=== PATIENT | male | born 1950 | race Caucasian/White ===

== ENCOUNTER 2017-11-19 17:20 | Observation (INO) ==
[2017-11-19 17:51] LABS: Basophils # 0.1 K/mcL (0.0-0.2); Basophils % 0.4 %; Hematocrit 45.2 % (37.5-50.1); Lymphocytes # 2.1 K/mcL (0.6-4.6); Mean Corpuscular HGB Conc 33.2 g/dL (31.6-35.5); Mean Corpuscular Hemoglobin 32.2 pg (28.0-33.3); Mean Platelet Volume 10.2 fL (9.4-12.4); Monocytes # 1.2 K/mcL (0.0-1.3); Monocytes % 5.6 %; Neutrophils # 17.5 K/mcL (1.6-8.9); Platelet Count 243 K/mcL (140-400); Red Blood Count 4.66 M/mcL (4.19-5.50); Red Cell Distribution Width 12.8 % (11.5-14.5)
[2017-11-19 18:01] LABS: Calcium 8.8 mg/dL (8.6-10.3); Carbon Dioxide 26 mEq/L (23-29); Chloride 99 mEq/L (98-107); Potassium 3.7 mEq/L (3.5-5.1); Sodium 131 mEq/L (136-145)
[2017-11-19 18:06] LABS: BUN/Creatinine Ratio 11 (6-26); Blood Urea Nitrogen 11 mg/dL (8-23); Glucose 383 mg/dL (70-105); Osmolality,Calculated 287 (280-300); eGFR For African Americans > 60 (> 60); eGFR For Non-African Americans > 60 (> 60)
[2017-11-19 18:20] LABS: Thyroid Stimulating Hormone 1.325 mcIU/mL (0.340-5.600)
[2017-11-19] MEDS ORDERED: Levofloxacin 750 MG/150 ML 750 MG/150 ML BAG IVPB ONE (19:27)
[2017-11-19] MEDS ORDERED: *HR* Enoxaparin 80 MG/0.8 ML SYRINGE SQ STA (19:27)
--- NOTE | 2017-11-19 19:43 | Emergency Department Note ---
Disposition Clinical Impression: Paroxysmal atrial fibrillation with rapid ventricular response Left lower lobe pneumonia Qualifiers: Pneumonia type: due to unspecified organism Qualified Code(s): J18.1 - Lobar pneumonia, unspecified organism Disposition: Admitted As Inpatient Condition: Good General Adult HPI - General Chief complaint: ED Arrhythmia/Palpitations Stated complaint: Fever; "was told by obleness to check into ER" Time Seen by Provider: 11/19/17 17:36 Source: patient Limitations: no limitations Nursing Notes Reviewed: Yes Vital Signs Reviewed: Yes - History of Present Illness HPI Narrative: 67-year-old male with a past medical history of diabetes. He reports that yesterday he had a sudden onset of fatigue and feeling generally unwell. Over the last few days he has had a cough with shortness of breath that acutely worsened at that time. This morning he went to the emergency department but left AMA because he had to give somebody a ride. He presents here with complaint of a fever, cough, generalized fatigue. He denies a prior history of any cardiac disease. He has no history of atrial fibrillation. He does not have any nausea or vomiting or abdominal pain. Radiation: non-radiation Pain Severity: moderate Pain Scale: 6 Consistency: constant Improves with: nothing Worsens with: nothing Associated symptoms: Reports: denies other symptoms Treatments Prior to Arrival: none - Related Data Allergies Allergy/AdvReac Type Severity Reaction Status Date / Time codeine AdvReac Palpitation Verified 11/19/17 17:29 s All systems ED: reviewed and negative except as stated. Constitutional: Denies: fever ENT ED: Denies: throat pain Cardiovascular: Reports: chest pain, palpitations, dyspnea on exertion Respiratory: Reports: cough Gastrointestinal: Denies: abdominal pain, nausea, vomiting Integumentary: Denies: rash Endocrine: Reports: fatigue Past Medical History - Past Medical History Medical history: Reports: diabetes Psychiatric history: Reports: no psych history - Social History Smoking Status: Current some day smoker Smokeless Tobacco Status: No Alcohol use: Reports: occasionally Drug use: Reports: none Physical Exam - General Limitations: no limitations General appearance: alert, in no apparent distress - Head Head exam: atraumatic - Eye Eye exam: Present: normal appearance, PERRL - ENT ENT exam: normal exam, normal oropharynx - Neck Neck exam: Present: normal inspection - Chest Chest inspection: Present: normal inspection - Respiratory Respiratory exam: Present: other (coarse lung sounds present.). Absent: respiratory distress - Cardiovascular Cardiovascular exam: Present: tachycardia, irregular rhythm - Abdominal Exam Abdominal exam: Present: soft, Non-Tender - Extremities Exam Extremities exam: Present: normal inspection - Neurological Exam Neurological exam: Present: alert, oriented X3 - Psychiatric Psychiatric exam: Present: normal affect, normal mood - Skin Skin exam: Present: warm, dry Course Course Narrative: On presentation the emergency department he was in atrial fibrillation with rapid ventricular rate. While I was in the room he converted to normal sinus rhythm and was confirmed by EKG. He was found to have a pneumonia on CT scan. In addition he has leukocytosis. I did go ahead and obtain blood cultures and started the Levaquin. I also gave 1 mg/kg of Lovenox for anticoagulation. He has remained in normal sinus rhythm since he converted. Vital Signs Temperature 98.7 F 11/19/17 17:24 Pulse Rate 138 11/19/17 17:24 Respiratory Rate 16 11/19/17 17:24 Blood Pressure 137/83 11/19/17 17:24 O2 Sat by Pulse Oximetry 94 11/19/17 17:24 Temperature 98.7 F 11/19/17 17:24 Pulse Rate 94 11/19/17 19:29 Respiratory Rate 16 11/19/17 19:29 Blood Pressure 148/78 11/19/17 19:29 O2 Sat by Pulse Oximetry 95 11/19/17 19:29 Oxygen Delivery Oxygen Delivery Room Air Medical Decision Making - Medical Records Medical records reviewed: Yes I reviewed the patient's medical records. - Lab Data Lab results reviewed: Yes I reviewed the patient's lab results. Result diagrams: 11/19/17 17:41 11/19/17 17:41 Lab Results 11/19/17 11/19/17 11/19/17 Range/Units 17:41 17:41 17:41 WBC 21.0 H (4.3-11.1) K/mcL RBC 4.66 (4.19-5.50) M/mcL Hgb 15.0 (12.9-16.9) g/dL Hct 45.2 (37.5-50.1) % MCV 97.0 (83.0-100.0) fL MCH 32.2 (28.0-33.3) pg MCHC 33.2 (31.6-35.5) g/dL RDW 12.8 (11.5-14.5) % Plt Count 243 (140-400) K/mcL MPV 10.2 (9.4-12.4) fL Immature Gran % 1.0 (0-4) % Seg Neutrophils % 83.0 % Lymphocytes % 10.0 % Monocytes % 5.6 % Eosinophils % 0.0 % Basophils % 0.4 % Neutrophils # 17.5 H (1.6-8.9) K/mcL Lymphocytes # 2.1 (0.6-4.6) K/mcL Monocytes # 1.2 (0.0-1.3) K/mcL Eosinophils # 0.0 (0.0-0.6) K/mcL Basophils # 0.1 (0.0-0.2) K/mcL Sodium 131 L (136-145) mEq/L Potassium 3.7 (3.5-5.1) mEq/L Chloride 99 (98-107) mEq/L Carbon Dioxide 26 (23-29) mEq/L BUN 11 (8-23) mg/dL Creatinine 1.03 (0.70-1.30) mg/dL Est GFR ( Amer) > 60 (> 60) Est GFR (Non-Af Amer) > 60 (> 60) BUN/Creatinine Ratio 11 (6-26) Glucose 383 H (70-105) mg/dL Calculated Osmolality 287 (280-300) Calcium 8.8 (8.6-10.3) mg/dL Troponin I < 0.03 (< 0.04) ng/mL TSH 1.325 (0.340-5.600) mcIU/mL - Radiology Data Radiology results reviewed: Yes I reviewed the patient's radiology results. - EKG Data EKG #1 EKG attestation: Yes I reviewed and interpreted this EKG. Rate: tachycardia Rhythm: A.Fib Interpretation: other (Afib RVR rate 134) EKG #2 EKG attestation: Yes I reviewed and interpreted this EKG. EKG shows normal: sinus rhythm Rate: normal Rhythm: NSR [place]/QRS: normal Interpretation: normal EKG Attestation Statement - Attestation Attestation: I examined this patient and my medical decision-making was reviewed with the Resident Physician, Dr. Pollard. I agree with the documented findings, disposition and treatment plan as described except to the extent set forth below. Patient is a 67-year-old white male who presents to the emergency department after leaving AMA from an outlying facility for 2-3 day history of gradually worsening fatigue fever or chills URI symptoms and cough. Patient states this acutely became worse over the last 24 hours and he is just feeling very fatigued. Patient arrives with an EKG that was performed in triage showing new onset atrial fibrillation with RVR and was brought back directly to a room. Patient with stable blood pressure throughout this time and no significant symptoms of chest pain palpitations no diaphoresis no shortness breath at rest no abdominal pain or back pain. Patient with no significant cardiac history. The patient's physical exam findings as documented patient was cardiac on arrival with a stable blood pressure. Was placed on child monitor and continuous pulse ox IV saline while was established and labs were drawn and sent chest x-ray and EKG were obtained. Chest x-ray was unremarkable for any infiltrates or pulmonary edema. Patient's labs show significant white count with left shift but the remainder of his lab work was unremarkable. We were still concerned clinically about possible pneumonia versus PE so patient was sent for CT of the chest which did confirm pneumonia. IV antibiotics were initiated for community-acquired pneumonia and patient was given Lovenox for paroxysmal A. fib. During reevaluation it was noted that patient had a normal sinus rhythm with heart rate in the 90s, EKG was repeated and he is in normal sinus rhythm at this time, vital signs are stable. Patient will be admitted to the hospitalist service for further evaluation and management.
[2017-11-19] MEDS ORDERED: Insulin LISPRO 300 UNITS/3 ML VIAL SQ SCH (22:15)
--- NOTE | 2017-11-19 22:50 | Internal Med History&Physical ---
<Jose Luis Rob - Last Filed: 11/20/17 00:17> Date of Encounter: 11/20/17 Time of Encounter: 22:15 Assessment and Plan (1) Left lower lobe pneumonia Current visit: Yes Status: Acute Patient complains of cough and SOB. WBC elevated to 21.0, will monitor CTA chest showed patchy consolidation of the left lower lobe suspicious for pneumonia Blood culture sent Started on levofloxacin in the ER, will continue Qualifiers: Pneumonia type: due to unspecified organism Qualified Code(s): J18.1 - Lobar pneumonia, unspecified organism (2) Paroxysmal atrial fibrillation with rapid ventricular response Current visit: Yes Status: Acute Converted to sinus rhythm in the ER, still mildly tachycardic Administering maintenance fluids Lovenox for anticoagulation Cardiac monitoring during this admission TSH normal Trending troponins, negative thus far Cause most likely PNA Echo in morning Cardiology consult in morning to consider outpatient follow up of stress test Patient likely to be candidate for cardioversion, should in return to afib (3) Diabetes mellitus, type II Current visit: Yes Status: Acute Normally takes metformin at home Glucose elevated to 383 on admission Started low dose SSI Qualifiers: Diabetes mellitus complication status: without complication Diabetes mellitus prison insulin use: without retail mortgage banker use Qualified Code(s): E11.9 - Type 2 diabetes mellitus without complications (4) DVT prophylaxis Current visit: Yes Status: Acute [facility] Internal Medicine - H&P: HPI Chief complaint: Weakness, chills, cough Admitted From: Home Plans for Post Hospital Care: Home History of present illness: Mr. Shah is a 67 year old male presenting with SOB, chills, and weakness that started yesterday. His initial symptom was nonproductive cough which started 2 weeks ago. Since then, this has progressed to SOB, chills, weakness, increased back pain, night sweats, and anorexia. He states that he did see that his fingertips were purple at some point since the SOB started. He denies palpitations and chest pain. He did initially present to [facility] when taking an [place]ie friend to an obstetric appointment, but left the ED AMA. On presentation here, he was in atrial fibrillation with rapid ventricular response. He spontaneously converted to sinus rhythm, but remained tachycardic. He does state that he is feeling better since receiving levofloxacin in the ED. Only past medical history is diabetes mellitus type II. Past Med Surg Social Fam HX - Past Medical History Medical history: diabetes Psychiatric history: no psych history - Social History Smoking Status: Current some day smoker Smokeless Tobacco Status: No Alcohol use: occasionally Drug use: none Internal Medicine - H&P: Meds Baclofen [Lioresal] 10 mg PO Q8H PRN 11/19/17 [History] Diclofenac Sodium [Voltaren] 50 mg PO Q8H PRN 11/19/17 [History] Gabapentin [Neurontin] 800 mg PO TID 11/19/17 [History] Lisinopril [Zestril] 5 mg PO DAILY 11/19/17 [History] Metformin HCl [Glucophage] 1,000 mg PO BID 11/19/17 [History] Omeprazole Magnesium [Prilosec Otc] 20 mg PO DAILY 11/19/17 [History] Simvastatin [Zocor] 40 mg PO HS 11/19/17 [History] Venlafaxine HCl [Effexor Xr] 75 mg PO DAILY 11/19/17 [History] glipiZIDE [Glipizide] 10 mg PO DAILY 11/19/17 [History] 3 Allergy/AdvReac Type Severity Reaction Status Date / Time codeine AdvReac Palpitation Verified 11/19/17 17:29 s All Systems PM: A 10-system review of systems was performed and is negative for pertinent findings except as documented above in the HPI. Review of systems: As per HPI - Constitutional Vitals: Temp Pulse Resp BP Pulse Ox 98.5 F 102 22 147/85 93 11/19/17 21:49 11/19/17 21:49 11/19/17 21:49 11/19/17 21:49 11/19/17 21:49 General appearance: Present: cooperative, A&O X 3, pleasant, no acute distress, answers questions appropriately - Head Head exam: Present: atraumatic, normal inspection, normocephalic - ENT ENT exam: Present: mucous membranes moist - Neck Neck exam general surgery: Present: trachea midline - Respiratory Respiratory exam: Absent: accessory muscle use, respiratory distress, wheezes, tachypnea Additional comments: Coarse breath sounds in over left inferior lung field - Cardiovascular Cardiovascular exam: Present: +S1, +S2, tachycardia Additional comments: regular rhythm - GI/Abdominal GI/Abdominal exam: Present: soft, no peritoneal signs. Absent: tenderness - Extremities Exam Extremities exam: Absent: pedal edema - Neurological Exam Neurological exam: Present: alert, oriented X3 - Psychiatric Psychiatric exam: Present: normal affect, normal mood. Absent: agitated, anxious - Skin Skin exam: Present: dry, warm Internal Med - H&P Results - Labs CBC & Chem 7: 11/19/17 17:41 11/19/17 17:41 <Gaetano Cortes - Last Filed: 11/20/17 03:21> Date of Encounter: 11/20/17 Time of Encounter: 02:40 Past Med Surg Social Fam HX - Past Medical History Attestation: Yes The following information was validated with the patient. Source: patient, other (ER records) Medical history: diabetes, GERD, hypertension Psychiatric history: no psych history - Past Surgical History Surgical History: no surgical history - Social History Current living situation: Home, With Family Activity Level: Independent ambulation Recent Out of Country Travel Within the Last 8 Weeks: No - Family History Mother Hx Family Cardiac Disorders: No Hx Family Endocrine Disorder: Yes (DM) Father Hx Family Cardiac Disorders: Yes Hx Family Cancer: Yes (bone) - Constitutional Constitutional: chills, fever(s) - EENT Eyes: no change in vision Ears: no ear pain, no tinnitus Nose, mouth and throat: nasal congestion, sinus pressure, no sore throat - Cardiovascular Cardiovascular ROS IM: dyspnea, irregular heart rhythm, palpitations, no chest pain, no syncope - Respiratory Respiratory: cough, dyspnea, wheezing, chest congestion, excessive phlegm production, change in phlegm color, no hemoptysis - Gastrointestinal Gastrointestinal: nausea, no abdominal pain, no diarrhea, no vomiting - Genitourinary Genitourinary ROS male: no dysuria, no flank pain, no hematuria - Musculoskeletal Musculoskeletal ROS IM: no arthralgias, no back pain - Integumentary Integumentary IM: no rash, no jaundice - Neurological Neurological ROS: dizziness, weakness, no focal weakness, no headache(s) - Psychiatric Psychiatric: no anxiety, no depression - Endocrine Endocrine IM: no polydipsia, no polyuria - Hematologic/Lymphatic Hematologic/Lymphatic: no lymphadenopathy - Allergic/Immunologic Allergic/Immunologic: wheezing, no GI upset with certain foods - Constitutional Vitals: Temp Pulse Resp BP Pulse Ox 98.6 F 90 20 141/65 91 11/20/17 00:05 11/20/17 00:05 11/20/17 00:05 11/20/17 00:05 11/20/17 00:05 General appearance: Present: A&O X 3, no acute distress - Eye Eye exam: Present: EOMI, PERRL. Absent: scleral icterus Pupils: Present: normal accommodation - ENT ENT exam: Present: mucous membranes dry, normal exam - Neck Neck exam general surgery: Present: full ROM, supple. Absent: lymphadenopathy, tenderness - Expanded Neck Exam Neck exam: Absent: carotid bruit - Respiratory Respiratory exam: Present: prolonged expiratory phase, rales (left base > right) , rhonchi. Absent: wheezes - Cardiovascular Cardiovascular exam: Present: RRR, +S1, +S2. Absent: diastolic murmur, JVD, systolic murmur - GI/Abdominal GI/Abdominal exam: Present: soft. Absent: tenderness - Extremities Exam Extremities exam: Present: full ROM, warm, radial pulses palpable and symmetrical. Absent: calf tenderness - Back Exam Back exam: Absent: CVA tenderness (L), CVA tenderness (R) - Neurological Exam Neurological exam: Present: alert, oriented X3, no focal deficits - Psychiatric Psychiatric exam: Present: normal affect, normal mood - Skin Skin exam: Present: dry, warm. Absent: rash Internal Med - H&P Results - Labs CBC & Chem 7: 11/20/17 01:10 11/20/17 01:10 Labs: Short CBC 11/20/17 Range/Units 01:10 WBC 17.2 H (4.3-11.1) K/mcL Hgb 13.1 D (12.9-16.9) g/dL Hct 38.7 (37.5-50.1) % Plt Count 211 (140-400) K/mcL Neutrophils # 13.2 H (1.6-8.9) K/mcL BMP 11/20/17 01:10 Sodium 132 L Potassium 4.2 Chloride 103 Carbon Dioxide 28 BUN 9 Creatinine 0.82 Glucose 187 H Calcium 8.6 Cardiac Enzymes 11/20/17 Range/Units 01:10 Troponin I < 0.03 (< 0.04) ng/mL - EKG Data -: EKG Interpreted by Myself - EKG Data EKG comments: 11/20/17 03:16 Initial EKG -- Atrial fibrillation w RVR; repeat NSR - Diagnostic Studies Chest x-ray Status: image reviewed by me (negative) Additional comments: CT chest report reviewed -- NO PE; findings concerning for pneumonia - Attending Attestation I discussed the patient [place], PMH, ROS, lab data, and exam findings with Dr. Rob. I then saw and examined patient independently as well. Patient is resting comfortably now and remains in NSR. He was initially in atrial fibrillation w RVR, which converted to NSR in ER. He denies any h/o CAD or thyroid disorders. FH + for CAD, however. We placed him on Lovenox and have ordered an ECHO. I agree with cardiology consultation regarding new Atrial Fibrillation (Paroxysmal), and he will need close outpatient follow up. He will also need cardiac stress testing in the near future. Other than my comments above and noted exam findings, I agree with Dr. Rob's assessment and plan.
[2017-11-19] MEDS: 0.9 % Sodium Chloride w KCl 20 MEQ/1,000 ML MLS IVC SCH (23:09)
[2017-11-19] MEDS ORDERED: Ondansetron ODT 4 MG TAB.RAPDIS SL PRN (23:13)
[2017-11-19] MEDS ORDERED: Naloxone 0.4 MG/ML INJ IVP PRN (23:13)
[2017-11-20] MEDS: Gabapentin 400 MG CAPSULE PO SCH ×2 (00:34→07:47)
[2017-11-20 01:20] LABS: Basophils # 0.1 K/mcL (0.0-0.2); Basophils % 0.3 %; Eosinophils % 0.2 %; Hematocrit 38.7 % (37.5-50.1); Immature Granulocytes % 0.5 % (0-4); Immature Platelets 5.1 % (1.1-6.1); Lymphocytes # 2.7 K/mcL (0.6-4.6); Lymphocytes % 15.9 %; Mean Corpuscular HGB Conc 33.9 g/dL (31.6-35.5); Mean Corpuscular Hemoglobin 32.5 pg (28.0-33.3); Monocytes # 1.1 K/mcL (0.0-1.3); Monocytes % 6.5 %; Neutrophils # 13.2 K/mcL (1.6-8.9); Platelet Count 211 K/mcL (140-400); Red Blood Count 4.03 M/mcL (4.19-5.50); Red Cell Distribution Width 12.6 % (11.5-14.5); Segmented Neutrophils % 76.6 %
[2017-11-20 01:21] LABS: Hemoglobin 13.1 g/dL (12.9-16.9)
[2017-11-20] MEDS ORDERED: Ipratropium/Albuterol Neb 3 ML IH PRN (01:36)
[2017-11-20 01:41] LABS: BUN/Creatinine Ratio 11 (6-26); Blood Urea Nitrogen 9 mg/dL (8-23); Calcium 8.6 mg/dL (8.6-10.3); Carbon Dioxide 28 mEq/L (23-29); Chloride 103 mEq/L (98-107); Glucose 187 mg/dL (70-105); Osmolality,Calculated 278 (280-300); Potassium 4.2 mEq/L (3.5-5.1); Sodium 132 mEq/L (136-145); eGFR For African Americans > 60 (> 60); eGFR For Non-African Americans > 60 (> 60)
[2017-11-20] MEDS ORDERED: *HR* Enoxaparin 30 MG/0.3 ML SYRINGE SQ SCH (07:00)
[2017-11-20] MEDS ORDERED: *HR* Enoxaparin 80 MG/0.8 ML SYRINGE SQ SCH (08:00)
[2017-11-20] MEDS: Insulin LISPRO 300 UNITS/3 ML VIAL SQ SCH ×2 (08:02→12:05)
[2017-11-20] MEDS ORDERED: Levofloxacin 750 MG/150 ML 750 MG/150 ML BAG IVPB SCH (09:00)
[2017-11-20] MEDS ORDERED: Venlafaxine XR (24 HR) 75 MG CAP.ER.24H PO SCH (09:00)
[2017-11-20] MEDS: 0.9 % Sodium Chloride w KCl 20 MEQ/1,000 ML MLS IVC SCH (09:07)
--- NOTE | 2017-11-20 11:43 | Internal Med Progress Note ---
Date of Encounter: 11/20/17 - Constitutional Vitals: Temp Pulse Resp BP Pulse Ox 97.7 F 68 16 118/59 95 11/20/17 07:19 11/20/17 07:19 11/20/17 07:19 11/20/17 07:19 11/20/17 07:19 General appearance: Present: A&O X 3, no acute distress Internal Medicine: Result - Labs CBC & Chem 7: 11/20/17 01:10 11/20/17 01:10 Labs: Cardiac Enzymes 11/20/17 Range/Units 06:38 Troponin I < 0.03 (< 0.04) ng/mL - VTE Reasons for not Prescribing Prophylaxis: Drug allergy Consult Discharge Plan - Plan
--- NOTE | 2017-11-20 11:51 | Discharge Summary ---
<Paul Aguilar - Last Filed: 11/20/17 15:43> Date of Encounter: 11/20/17 Time of Encounter: 11:46 - Discharge Diagnosis (1) Left lower lobe pneumonia Priority: Primary Status: Acute Qualifiers: Pneumonia type: due to unspecified organism Qualified Code(s): J18.1 - Lobar pneumonia, unspecified organism (2) Paroxysmal atrial fibrillation with rapid ventricular response Priority: Secondary Status: Acute (3) Diabetes mellitus, type II Priority: Secondary Status: Acute Qualifiers: Diabetes mellitus complication status: without complication Diabetes mellitus manager terminal insulin use: without manager terminal use Qualified Code(s): E11.9 - Type 2 diabetes mellitus without complications (4) DVT prophylaxis Priority: Secondary Status: Acute - Discharge Medications Prescriptions: Apixaban [Eliquis] 5 mg PO BID 30 Days #60 tablet levoFLOXacin [Levaquin] 500 mg PO DAILY #10 tablet Home Medications: Baclofen [Lioresal] 10 mg PO Q8H PRN 11/19/17 [History] Diclofenac Sodium [Voltaren] 50 mg PO Q8H PRN 11/19/17 [History] Gabapentin [Neurontin] 800 mg PO TID 11/19/17 [History] Lisinopril [Zestril] 5 mg PO DAILY 11/19/17 [History] Metformin HCl [Glucophage] 1,000 mg PO BID 11/19/17 [History] Omeprazole Magnesium [Prilosec Otc] 20 mg PO DAILY 11/19/17 [History] Simvastatin [Zocor] 40 mg PO HS 11/19/17 [History] Venlafaxine HCl [Effexor Xr] 75 mg PO DAILY 11/19/17 [History] glipiZIDE [Glipizide] 10 mg PO DAILY 11/19/17 [History] Apixaban [Eliquis] 5 mg PO BID 30 Days #60 tablet 11/20/17 [Rx] levoFLOXacin [Levaquin] 500 mg PO DAILY #10 tablet 11/20/17 [Rx] Allergies/Adverse Reactions: 3 Allergy/AdvReac Type Severity Reaction Status Date / Time codeine AdvReac Palpitation Verified 11/19/17 17:29 s Date of admission: 11/20/17 03:22 Primary care physician: Gabriel Vasquez, Discharging clinician: Paul Aguilar Anticipated date of discharge: 11/20/17 - Patient Status Disposition: Home, Self-Care Condition: Good Functional capacity at discharge: independent ambulation Overall status at discharge: patient is progressing back to baseline - Discharge Instructions Instructions: Levofloxacin (By mouth), Apixaban (By mouth), Atrial Fibrillation (DC), Diabetes Mellitus Type 2 in Adults (DC), Pneumonia (DC) Follow Up With: Gabriel Vasquez DO [Primary Care Provider] - 11/27/17 9:00 am Jyoti Coreas DO [Partnered Physician] - (they will call you with an appointment if they do not call you by next call them for an appointment.) Forms: ED Satisfaction Letter - Diet and Activity Activity: resume usual activities as tolerated Diet: diabetic diet Hospital course: Mr. Shah is a 67 year old male w/ pmh of T2DM presented to [facility] ED with a 2 day hx SOB, chills and weakness. In the ED the patient was found to be in afib w/ RVR, he spontaneously converted to sinus rhythm but remained tachcardic. WBC 21, afebrile, tachycardic, hypertensive. In the ED patient was started on levofloxacin. By 1st day of admission patient clinically improved, and WBC trended downward. Patient discharged with levaquin 10 day course, and eliquis 5 mg BID. echo LVEF 60-65%. Patient to have follow up appointment with director business travel for afib and PCP for PNA within one week. Patient was given Eliquis savings card, and highly encouraged to make appointments. Time spent discussing smoking cessation with patient: more than 10 minutes - Time Spent with Patient Total time spent providing and/or coordinating discharge services: Greater than 30 minutes - Constitutional Vitals: Temp Pulse Resp BP Pulse Ox 97.7 F 68 16 118/59 95 11/20/17 07:19 11/20/17 07:19 11/20/17 07:19 11/20/17 07:19 11/20/17 07:19 General appearance: Present: A&O X 3, no acute distress - Respiratory Respiratory exam: Present: CTAB. Absent: accessory muscle use, rales, rhonchi, wheezes - Cardiovascular Cardiovascular exam: Present: RRR, +S1, +S2. Absent: diastolic murmur, gallop, rubs, systolic murmur - GI/Abdominal GI/Abdominal exam: Present: normal bowel sounds, soft, no peritoneal signs. Absent: distended, tenderness - Psychiatric Psychiatric exam: Present: normal affect, normal mood - VTE Reasons for not Prescribing Prophylaxis: Drug allergy <Sumanth Rizvi Levar - Last Filed: 11/20/17 19:17> Date of Encounter: 11/20/17 - Discharge Diagnosis (1) Pneumonia Priority: Primary Status: Suspected Qualifiers: Pneumonia type: due to Pneumococcus Laterality: left Lung location: lower lobe of lung Qualified Code(s): J13 - Pneumonia due to Streptococcus pneumoniae (2) Atrial fibrillation Priority: Primary Status: Acute Qualifiers: Atrial fibrillation type: paroxysmal Qualified Code(s): I48.0 - Paroxysmal atrial fibrillation (3) Diabetes mellitus, type II Status: Chronic Qualifiers: Diabetes mellitus complication status: without complication Diabetes mellitus manager terminal insulin use: without manager terminal use Qualified Code(s): E11.9 - Type 2 diabetes mellitus without complications (4) Tobacco abuse Priority: Secondary Status: Chronic Procedures/tests Complete & Pending: Procedures Performed prior 72 hours Category Date Time Status EV echocardiogram Routine Y 11/20/17 00:41 Completed Date of admission: 11/19/17 20:52 Primary care physician: Gabriel Vasquez, Consults: 11/19/17 23:15 Consult to Nurse Navigator [CONS] Routine Comment: Hospital course: Mr. Shah is a 67 year old male - Time Spent with Patient Total time spent providing and/or coordinating discharge services: - Constitutional Vitals: Temp Pulse Resp BP Pulse Ox 97.8 F 75 18 139/72 94 11/20/17 12:00 11/20/17 12:00 11/20/17 12:00 11/20/17 12:00 11/20/17 12:00 - Attending Attestation I examined this patient and my medical decision-making was reviewed with the Resident Physician on 11/20/17. I agree with the documented findings, disposition and treatment plan as described except to the extent set forth below. Mr Shah has been in observation for pneumonia and parox a fib. He is now afebrile and off oxygen. He is in normal sinus rhythm. He is ready for discharge home. Exam alert. Comfortable Mucus membranes dry Heart reg No wheeze Abd soft Plan D/C home today with abx and anticoagulation Follow up with PCP and cardiology.
[2017-11-20 12:05] VITALS: BP 139/72
--- NOTE | 2017-11-22 06:44 | Electrocardiograph Report ---
[address] [address] Test Date: 2017-11-19 Pat Name: Tristin Shah Department: 104 Room: 2NE23 Gender: M Service Representative: BATSHEVA : 1950 Requested By: Sahil Pollard Order Number: [id number] Reading MD: Brandon Cuellar MD Measurements Intervals [place] Rate: 134 P: [place]: 0 QRS: 56 QRSD: 90 T: 62 QT: 283 QTc: 362 Interpretive Statements ATRIAL FIBRILLATION WITH RAPID VENTRICULAR RESPONSE WITH ABERRANT CONDUCTION OR VENTRICULAR PREMATURE COMPLEXES Electronically Signed On 11-22-2017 6:43:23 EST by Brandon Cuellar MD
--- NOTE | 2017-11-22 06:47 | Electrocardiograph Report ---
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
== END 2017-11-20 16:00 | disposition home or self-care (01) ==
LOC: EMEROO 17:20 → 2NENU 17:20
PROVIDERS: ADMIT Pediatrics; ATTEND Internal Medicine